=== PATIENT | male | born 1965 | race Caucasian/White ===

== ENCOUNTER 2025-07-16 20:02 | Emergency (ER) | payer SELFPAY ==
[~2025-07-16] VITALS: Ht 175.3 cm; Wt 74.0 kg
[2025-07-16 20:06] VITALS: TEMP 37.2; O2SAT 98
[2025-07-16] MEDS ORDERED: DOXYCYCLINE HYCLATE 100 MG/VIAL IV ONE (20:30)
[2025-07-16] MEDS ORDERED: DOXYCYCLINE 100MG/100ML 100 ML IV SCH (21:00)
[2025-07-16] MEDS: CEFTRIAXONE SODIUM 500MG VIAL IM ONE (21:03)
[2025-07-16] MEDS: SODIUM CHLORIDE 0.9% 1,000 ML IV ONE (21:07)
[2025-07-16 21:15] LABS: BASOPHILS % 0.2 % (0.0-2.0); EOSINOPHILS % 1.1 % (0.0-5.0); HEMATOCRIT. 37.2 % (42.0-52.0); HEMOGLOBIN. 12.1 g/dL (14.0-18.0); LYMPHOCYTES % 22.4 % (20.0-50.0); MEAN PLATELET VOLUME 7.3 fl (7.4-10.4); MONOCYTES % 6.2 % (2.0-8.0); NEUTROPHILS % 70.1 % (40.0-76.0); PLATELET 263 x1000/uL (130-400); RED BLOOD CELL COUNT 4.21 mill/uL (4.7-6.1); RED CELL DISTRIBUTION WIDTH 15.3 % (11.6-14.6)
[2025-07-16 21:30] LABS: CREATININE 1.0 mg/dL (0.6-1.3)
[2025-07-16 21:31] LABS: ETHANOL BLOOD < 10 mg/dL (<10); UREA NITROGEN BLOOD 15 mg/dL (9-23)
[2025-07-16 21:32] LABS: ASPARTATE AMINOTRANSFERASE 12 IU/L (<34)
[2025-07-16 21:33] LABS: BILIRUBIN DIRECT < 0.1 mg/dL (<=3.0); BILIRUBIN TOTAL 0.3 mg/dL (0.1-1.0); PROTEIN TOTAL 6.3 g/dL (6.0-8.3)
[2025-07-16 22:08] LABS: HEPATITIS A AB IGM NEGATIVE (Negative)
[2025-07-16 22:09] LABS: HEPATITIS B CORE AB IGM NEGATIVE (Negative); HEPATITIS C AB NON REACTIVE (Neg) (Negative)
[2025-07-16] MEDS ORDERED: NALO4SPR BOTHNSTRLS (22:22)
[2025-07-16 22:45] VITALS: BP 107/80; PULSE 82; RESP 18; O2SAT 100
== END 2025-07-16 22:45 | disposition home or self-care (01) ==
LOC: ER 20:02 → EDBD 20:02 → ER 22:45
DX: T50.905A Adverse effect of unspecified drugs, medicaments and biological substances, initial encounter (principal); Y92.89 Other specified places as the place of occurrence of the external cause
CPT/HCPCS: 80076; 80048; 80320; 82140; 83605; 83690; 85025; 87340; 36415; 86705; 86709; 70450; 96360; 99284; J3490; J7030; G0480